=== PATIENT | female | born 1980 | race Caucasian/White ===

== ENCOUNTER 2017-01-15 23:27 | Emergency (ER) | payer OTHER ==
[2017-01-16 00:04] LABS: BASOPHIL % 0.8 % (0-2); PLATELET COUNT 227 x10^3mcL (130-400); RED CELL DISTRIBUTION WIDTH 13.8 % (11.5-14.5)
[2017-01-16 00:13] LABS: CALCIUM 8.3 mg/dL (8.5-10.1); CARBON DIOXIDE 24.5 mmol/L (21-32); CHLORIDE SERUM 99 mmol/L (98-107); CREATININE SERUM 0.8 mg/dL (0.6-1.0); GFR1 > 60 mL/min; GLUCOSE SERUM 138 mg/dL (74-106); POTASSIUM SERUM 3.5 mmol/L (3.5-5.1); SODIUM SERUM 134 mmol/L (136-145)
[2017-01-16 00:38] LABS: ALBUMIN 4.3 g/dL (3.4-5.0); ALKALINE PHOSPHATASE 70 U/L (46-116); ALT/SGPT 51 U/L (14-59); AST/SGOT 42 U/L (15-37); BILIRUBIN TOTAL 0.69 mg/dL (0.20-1.00); TOTAL PROTEIN, SERUM 7.7 g/dL (6.4-8.2)
[2017-01-16 00:40] LABS: CK-MB 8.5 ng/mL (0-3.6)
[2017-01-16 10:00] LABS: AMPHETAMINE QUAL UR NONE DETECTED (NEG <=1000)
[2017-01-16 12:09] VITALS: BP 127/91
== END 2017-01-16 12:09 | disposition home or self-care (01) ==
LOC: ED 23:27
PROVIDERS: Emergency Medicine
DX: F23 Brief psychotic disorder (principal); Z85.850 Personal history of malignant neoplasm of thyroid
CPT/HCPCS: 80307; G0480; J1630; Q0092